=== PATIENT | female | born 1970 | race Caucasian/White ===

== ENCOUNTER 2016-05-03 21:22 | Emergency (ER) | payer OTHER ==
[2016-05-03] MEDS ORDERED: SULFAMETHOXAZOLE/TMP DS PREPAC 1 TAB TAB PO ONE (22:12)
--- NOTE | 2016-05-03 22:12 | ER NURSING DOCUMENTATION ---
Nurse's Notes [facility] Name:Yusra Burrell Age:46 yrs Sex:Female :1970 Arrival Date:05/03/2016 Time:21:22 Bed1 Private MD: Diagnosis:Brown Recluse Spider Bite Presentation: 05/03 21:34 Presenting complaint: Patient states: possible insect bite to right thumb. Transition lb of care: Home. Notified ED Physician of Dr. Wang notified. Care prior to arrival: Medication(s) given: benadryl cream, iodine. 21:34 Acuity: MARIE 5 lb 21:34 Method Of Arrival: Walk In Triage Assessment: 21:37 Bite description: bite sustained to lateral aspect of right hand by unknown. General: lb Appears in no apparent distress, Behavior is cooperative. Pain: Denies pain. Historical: - Allergies: succinylcholine chloride; - Home Meds: 1. None - PMHx: None; - PSHx: None; - Tetanus: > 10 years. - Ebola Screening: : Patient negative for fever greater than or equal to 101.5 degrees Fahrenheit, and additional compatible Ebola Virus Disease symptoms. Patient denies exposure to infectious person. Patient denies travel to an Ebola-affected area in the 21 days before illness onset. No symptoms or risks identified at this time. . - Immunization history: Flu Vaccine None. - Social history: Smoking status: Patient uses tobacco products, current every day smoker. Patient uses alcohol on a daily basis. marijuana. - Code Status:: Full code. Screenin:38 Infectious Disease Risk None. Abuse screen: Denies threats or abuse. Denies injuries lb from another. Nutritional screening: No deficits noted. Assessment: 21:38 See Triage Assessment done by same RN. lb Vital Signs: 21:37 BP 134 / 57; Pulse 96; Resp 14; Temp 98.3; Pulse Ox 92% on R/A; Weight 58.97 kg; Height lb 5 ft. 3 in. (160.02 cm); Pain 0/10; 21:37 Body Mass Index 23.03 (58.97 kg, 160.02 cm) lb ED Course: 21:24 Patient arrived in ED. ma1 21:24 Ivan Wang MD is Attending Physician. me 21:30 Aubrie Isabel is Primary Nurse. lb 21:35 Triage completed. lb 21:38 Valuables Remains with patient. lb Administered Medications: 21:58 CANCELLED (Other Intervention Used): Keflex 250 mg PO once sc 22:02 Drug: Bactrim (160 mg-800 mg (DS) 1 tabs; Route: PO; lb 22:02 Follow up: Response: Pharmacy closed - take home med pack Outcome: 22:02 Discharge ordered by . me 22:11 Discharged to home ambulatory. lb 22:11 Condition: good 22:11 Discharge Assessment: Patient awake, alert and oriented x 3. No cognitive and/or functional deficits noted. Patient verbalized understanding of disposition instructions. 22:11 Instructed on discharge instructions, follow up and referral plans. 22:11 Patient left the ED. lb Signatures: Ivan Wang MD MD sc Bollock, Lynda lb Addison, Melissa ma1
--- NOTE | 2016-05-03 22:12 | ER PHYSICIAN DOCUMENTATION ---
Physician Documentation [facility] Name:Yusra Burrell Age:46 yrs Sex:Female :1970 Arrival Date:05/03/2016 Time:21:22 Bed1 Private MD: Ivan Sainz Disposition: 05/03/16 22:02 Discharged to Home/Self Care. Impression: Brown Recluse Spider Bite. - Condition is Good. - Discharge Instructions: BROWN RECLUSE SPIDER BITE. - Prescriptions for Bactrim DS 160- 800 mg Oral Tablet - take 1 tablet by ORAL route every 12 hours for 7 days; 14 tablet. - Medical Reconciliation form form. - Follow up: Private Physician; When: 1 week; Reason: Recheck today's complaints. - Problem is new. - Symptoms are unchanged. HPI: 05/03 21:58 This 46 yrs old Female presents to ER via Walk In with complaints of Insect sc Bite. 21:59 The patient was bitten on the lateral aspect of right hand. Onset: The sc symptom(s)/episode began/occurred 2 day(s) ago. Animal information: The insect had the markings of a brown recluse spider. Infection risk factors: bite to the hand. Secondary to the bite the patient reports swelling. Associated signs and symptoms: The patient has no apparent associated signs or symptoms. Historical: - Allergies: succinylcholine chloride; - Home Meds: 1. None - PMHx: None; - PSHx: None; - Tetanus: > 10 years. - Ebola Screening: : Patient negative for fever greater than or equal to 101.5 degrees Fahrenheit, and additional compatible Ebola Virus Disease symptoms. Patient denies exposure to infectious person. Patient denies travel to an Ebola-affected area in the 21 days before illness onset. No symptoms or risks identified at this time. . - Immunization history: Flu Vaccine None. - Social history: Smoking status: Patient uses tobacco products, current every day smoker. Patient uses alcohol on a daily basis. marijuana. - Code Status:: Full code. ROS: 21:59 Constitutional: Negative for fever, chills, and weight loss. sc Eyes: Negative for injury, pain, redness, and discharge. ENT: Negative for injury, pain, and discharge. Neck: Negative for injury, pain, and swelling. Cardiovascular: Negative for chest pain, palpitations, and edema. Respiratory: Negative for shortness of breath, cough, wheezing, and pleuritic chest pain. Abdomen/GI: Negative for abdominal pain, nausea, vomiting, diarrhea, and constipation. Back: Negative for injury and pain. 21:59 Neuro: Negative for headache, weakness, numbness, tingling, and seizure. sc 21:59 Skin: Positive for blister, feels pressure 8mm. Exam: Constitutional: This is a well developed, well nourished patient who is awake, alert, and in no acute distress. Head/Face: Normocephalic, atraumatic. Eyes: Pupils equal round and reactive to light, extra-ocular motions intact. Lids and lashes normal. Conjunctiva and sclera are non-icteric and not injected. Cornea within normal limits. Periorbital areas with no swelling, redness, or edema. MS/ Extremity: Pulses equal, no cyanosis. Neurovascular intact. Full, normal range of motion, negative Homans's, calves equal bilaterally. 22:00 Neuro: Awake and alert, GCS 15, oriented to person, place, time, and situation. sc Cranial nerves II-XII grossly intact. Motor strength 5/5 in all extremities. Sensory grossly intact. Cerebellar exam normal. Normal gait. 22:00 Skin: Appearance: normal except for affected area, injury, bite(s), superficial. Vital Signs: 21:37 BP 134 / 57; Pulse 96; Resp 14; Temp 98.3; Pulse Ox 92% on R/A; Weight 58.97 kg; Height lb 5 ft. 3 in. (160.02 cm); Pain 0/10; 21:37 Body Mass Index 23.03 (58.97 kg, 160.02 cm) lb MDM: 21:25 Patient medically screened. sc 22:01 Differential diagnosis: cellulitis. Rabies Status: Rabies immunization is not sc indicated. Data reviewed: vital signs, nurses notes, and as a result, I will discharge patient, administer antibiotics. Counseling: I had a detailed discussion with the patient and/or guardian regarding: the historical points, exam findings, and any diagnostic results supporting the discharge/admit diagnosis, the need for outpatient follow up, to return to the emergency department if symptoms worsen or persist or if there are any questions or concerns that arise at home. Dispensed Medications: 21:58 CANCELLED (Other Intervention Used): Keflex 250 mg PO once sc 22:02 Drug: Bactrim (160 mg-800 mg (DS) 1 tabs; Route: PO; lb 22:02 Follow up: Response: Pharmacy closed - take home med pack lb Signatures: Ivan Wang MD MD ky Aubrie Isabel
== END 2016-05-03 22:12 | disposition home or self-care (01) ==
LOC: ER 21:22
DX: T63.331A Toxic effect of venom of brown recluse spider, accidental (unintentional), initial encounter (principal); S60.571A Other superficial bite of hand of right hand, initial encounter
CPT/HCPCS: 99283